=== PATIENT | male | born 1935 | race Caucasian/White ===

== ENCOUNTER → 2017-12-17 | Outpatient (CLI) | payer OTHER ==
--- NOTE | ~2017-12-17 | PATH ---
[facility] [address] [address] PATHOLOGY RPT PROCEDURE Name: FABRICIO DENT Room #: REG MARVIN Rendon#: [id number] Admission: 12/17/17 Date of : 39 Discharge: Report #: [id number] Path Case #: [id number] [facility] Accession Number: [id number] . 01 Material submitted: . RANDOM COLON BIOPSIES R/O MICORSCOPIC COLITIS . 01 Clinical history: . Pre-OP DX: Diarrhea, change in bowel habits Post-OP DX: Diverticulosis, radiation proctitis, internal hemorrhoids . 02 Diagnosis: Large intestine mucosa, random colon rule out microscopic colitis, endoscopic biopsy: - Mild to moderate active colitis. (please see comment) - Negative for dysplasia or malignancy. QRQ/12/18/2017 . 02 Comment: Sections of the colonic mucosa designated "random colon" show focal cryptitis, and a moderately cellular lamina propria composed predominantly of lymphocytes and plasma cells and occasional eosinophils. Surface ulceration is not identified. There are no crypt abscesses, granulomas or viral inclusions. The process effects all the fragments with a similar intensity. Given the description, the differential diagnosis includes active colitis of self-limited type, active colitis of infectious type, early inflammatory bowel disease, acute diverticulitis, as well as medication-induced colitis. Please correlate with clinical as well as endoscopic findings. (IUV:mgr; 12/18/17) . 02 Electronically signed: . Coco Moran MD, Pathologist NPI- [id number] . 01 Gross description: . Received in formalin labeled "Fabricio Dent, random colon biopsies, rule out microscopic colitis," are 5 segments of sierra soft tissue measuring 1.5 x 0.9 x 0.2 cm in aggregate dimensions and ranging from 0.3-0.7 cm in maximum dimension. The specimen is submitted entirely in cassette A1. . (TSD; 12/17/2017) TOB/TOB . 02 CPT . [id number] Performed at: [address] [place] [address] PATHOLOGY RPT PROCEDURE Name: FABRICIO DENT Room #: REG CLI Julieta#: [id number] Admission: 12/17/17 Date of : 39 Discharge: Report #: [id number] Path Case #: [id number] [facility] [place] [address], [place] [id number] MD Pratik Amos MD Phone: [phone] Performed at: [address] [id number] MD Coco Moran MD Phone: [phone]
== END | disposition home or self-care (01) ==
LOC: GI 13:53
DX: K52.9 Noninfective gastroenteritis and colitis, unspecified (principal); K62.7 Radiation proctitis; K57.30 Diverticulosis of large intestine without perforation or abscess without bleeding; K64.8 Other hemorrhoids; I10 Essential (primary) hypertension; E78.00 Pure hypercholesterolemia, unspecified; I49.9 Cardiac arrhythmia, unspecified; Z85.46 Personal history of malignant neoplasm of prostate; Z98.890 Other specified postprocedural states; Z88.8 Allergy status to other drugs, medicaments and biological substances; Z79.899 Other long term (current) drug therapy
CPT/HCPCS: 62110; 62900

== ENCOUNTER 2018-02-21 05:30 | Day surgery (SDC) | payer OTHER ==
[~2018-02-21] VITALS: Ht 177.8 cm; Wt 61.7 kg
[~2018-02-21 05:30] MED LIST: BENTYL 10 MG CA10 M1 PO; COREG25 MG PO; ELMIRON 100 MG100 M1 PO; ENTRESTO 97 MG1 EACH PO; FLOMAX0.4 MG PO; LASIX 20 MG TAB20 MG PO; LIPITOR 20 MG T20 M1 PO; OMEGA-31000 M1 PO; OXYCODONE-ACET1 EACH PO; PACERONE 200 M200 M1 PO; SPIRONOLACTONE PO; SPIRONOLACTONE25 M1 PO; UBIQUINONE PO; XARELTO20 MG PO
[2018-02-21 06:55] LABS: CALCIUM 9.2 mg/dL (8.5-10.1); CREATININE 1.6 mg/dL (0.7-1.3)
[2018-02-21 06:56] LABS: POTASSIUM 4.7 mmol/L (3.5-5.1)
[2018-02-21] MEDS ORDERED: NORCO 5-325 TA1 EACH PO (09:44)
[2018-02-21] MEDS ORDERED: ZOFRAN4 MG PO (09:44)
[2018-02-21 10:09] VITALS: BP 144/69
== END 2018-02-21 10:50 | disposition home or self-care (01) ==
LOC: TBA 05:30 → OR 05:30 → TBA 05:31 → OR 08:42
PROVIDERS: Surgery
DX: K40.00 Bilateral inguinal hernia, with obstruction, without gangrene, not specified as recurrent (principal); E78.5 Hyperlipidemia, unspecified; I11.0 Hypertensive heart disease with heart failure; I73.9 Peripheral vascular disease, unspecified; I50.20 Unspecified systolic (congestive) heart failure; I48.1 Persistent atrial fibrillation; I47.2 Ventricular tachycardia; Z88.1 Allergy status to other antibiotic agents; Z79.899 Other long term (current) drug therapy; Z87.891 Personal history of nicotine dependence; Z95.810 Presence of automatic (implantable) cardiac defibrillator; Z85.46 Personal history of malignant neoplasm of prostate; Z98.890 Other specified postprocedural states; Z90.89 Acquired absence of other organs
CPT/HCPCS: 50010; 50101; 53310; 54169; 62110; 62900; 70005